=== PATIENT | female | born 1945 | race Caucasian/White ===

== ENCOUNTER 2020-09-01 11:45 | Emergency (ER) | payer OTHER, MEDICARE ==
[~2020-09-01] VITALS: Ht 165.1 cm; Wt 59.9 kg
[2020-09-01] MEDS ORDERED: SINGULAIR10 MG PO (12:06)
[2020-09-01] MEDS ORDERED: FLEXI JOINT TA1 EAC1 PO (12:21)
[2020-09-01] MEDS ORDERED: NORCO 5-325 TA1 EACH PO (14:00)
== END 2020-09-01 14:44 | disposition home or self-care (01) ==
LOC: ED 11:45
DX: S82.852A Displaced trimalleolar fracture of left lower leg, initial encounter for closed fracture (principal); S93.05XA Dislocation of left ankle joint, initial encounter; X50.9XXA Other and unspecified overexertion or strenuous movements or postures, initial encounter; Z79.899 Other long term (current) drug therapy
CPT/HCPCS: 27818; 73610; 99152; 99283-25; J1170; J2405; J2704